=== PATIENT | male | born 1960 | race Caucasian/White ===

== ENCOUNTER 2023-04-09 07:19 | Emergency (ER) | payer OTHER ==
[~2023-04-09] VITALS: Ht 175.3 cm; Wt 108.9 kg
[~2023-04-09 07:19] MED LIST: AMLODIPINE-BEN1 EAC3 PO; ASPIRIN81 MG PO; CARVEDILOL25 MG PO; CLONIDINE HCL0.1 MG PO; HYDROCODON-ACE1 EA11 PO; METHOCARBAMOL750 MG PO; ULTRAM 50MG50 MG PO
[2023-04-09 07:20] VITALS: O2SAT 98
[2023-04-09] MEDS ORDERED: TRAMADOL HCL 50 MG TAB PO ONE (07:30)
[2023-04-09] MEDS ORDERED: METHOCARBAMOL 750 MG TAB PO ONE (07:30)
[2023-04-09] MEDS ORDERED: KETOROLAC TROMETHAMINE 60 MG/2 ML VIAL IM ONE (07:30)
[2023-04-09] MEDS ORDERED: PREDNISONE 20 MG TAB PO ONE (08:15)
[2023-04-09] MEDS ORDERED: PREDNISONE 20 MG TAB ONE (08:36)
[2023-04-09] MEDS ORDERED: METHOCARBAMOL750 MG PO (09:44)
[2023-04-09] MEDS ORDERED: HYDROCODON-ACE1 EA11 PO (09:44)
[2023-04-09] MEDS ORDERED: PREDNISONE50 MG PO (09:46)
== END 2023-04-09 09:50 | disposition home or self-care (01) ==
LOC: ER 07:22
DX: M54.16 Radiculopathy, lumbar region (principal); I10 Essential (primary) hypertension; G89.29 Other chronic pain
CPT/HCPCS: 99283; J1885; J7512